=== PATIENT | female | born 1975 | race Caucasian/White ===

== ENCOUNTER 2020-02-02 14:15 | Outpatient (CLI) | payer MEDICARE, MEDICAID, SELFPAY ==
--- NOTE | 2020-02-02 14:27 | CT_ITS ---
WS: [id number] CT NECK WITH CONTRAST HISTORY: CHRONIC SIALOADENITIS TECHNIQUE: Contiguous 5 mm axial images are performed through the neck with intravenous contrast. Sag ittal and coronal reformats are also submitted. All CT scans at [facility] use at least o ne of these dose optimization techniques: automated exposure control; mA and/or kV adjustment per pat ient size (includes targeted exams where dose is matched to clinical indication); or iterative recons truction. CONTRAST: CONTRAST: Omnipaque 300; 95 mL IV. DLP: 2420.65 mGycm COMPARISON: None available. Nasopharynx, oropharynx, hypopharynx and larynx are unremarkable. No soft tissue masses or abnormal e nhancement. Torus tubarius and fossa of Rosenmuller and parapharyngeal fat are normal. No significant lymphadenopathy is identified. Very small thyroid gland. Parotid glands are slightly enlarged. There are multiple small hypodense nodules throughout both glan ds although no discrete enhancing mass. No adjacent inflammation. This study was performed with contr ast which could obscure small stones. The parotid ducts are normal size with no stones at this time. Normal-sized submandibular glands. No osseous abnormalities. Visualized portions of the skull base demonstrate no abnormalities. Orbits and globes are within norm al limits. No soft tissue masses. Visualized paranasal sinuses and mastoid air cells are normal. Lung apices are clear. CT/CT neck w con* [id number] IMPRESSION: 1. Mild enlargement and heterogeneity throughout the carotid glands. The postc ontrast study may obscure small stones. Correlate for possible Sjogren's syndro me. 2. No parotid duct obstruction. 3. Small thyroid gland. May have been partially removed or atrophied.
[2020-02-02] MEDS: iohexol 300 mg/mL 100 mL Btl IV (14:57)
== END 2020-02-02 14:16 | disposition home or self-care (01) ==
PROVIDERS: PCP Physician Assistant; Visit Provider Otolaryngology
DX: K11.23 Chronic sialoadenitis (principal)
CPT/HCPCS: 70491; Q9967

== ENCOUNTER → 2020-03-03 09:01 | Outpatient (BNVA) | payer MEDICARE, MEDICAID, SELFPAY | PROVIDERS: PCP Physician Assistant; Visit Provider Internal Medicine | DX: M06.9 Rheumatoid arthritis, unspecified (principal); Z11.59 Encounter for screening for other viral diseases; Z11.1 Encounter for screening for respiratory tuberculosis; D86.9 Sarcoidosis, unspecified; M32.9 Systemic lupus erythematosus, unspecified; M54.2 Cervicalgia; B99.9 Unspecified infectious disease; M79.642 Pain in left hand; M79.641 Pain in right hand; Z51.81 Encounter for therapeutic drug level monitoring; Z79.899 Other long term (current) drug therapy | CPT/HCPCS: 36415; 72040; 73120; 80053; 82306; 82784; 82955; 85025; 86140; 86431; 86480; 86704; 86803; 87340; 87806; 99204 ==

== ENCOUNTER 2020-03-03 10:13 | Outpatient (CLI) | payer MEDICARE, MEDICAID, SELFPAY ==
--- NOTE | 2020-03-03 10:18 | XR_ITS ---
WS: [id number] LATERAL CERVICAL SPINE: 3 view. Lateral radiographs are performed in upright neutral, flexion and extension to the patient's toleranc e. HISTORY: neck pain COMPARISON: None available. Mild straightening of the normal cervical lordosis. Disc spaces and vertebral body heights are normal . No prevertebral soft tissue abnormality. With flexion and extension no instability. XR/XR cervical spine fl/ex [id number] IMPRESSION: Normal cervical alignment with no instability.
--- NOTE | 2020-03-03 10:18 | XR_ITS ---
WS: [id number] RIGHT HAND: 2 VIEW(S) TECHNIQUE: PA and lateral. HISTORY: hand pain COMPARISON: None available. No acute fracture or dislocation. No soft tissue or bone abnormality. Very minimal narrowing of the interphalangeal joint spaces. No erosions. XR/XR hand RT 2V [id number] IMPRESSION: Suspect very mild early arthritic changes at the interphalangeal joints.
--- NOTE | 2020-03-03 10:18 | XR_ITS ---
WS: [id number] LEFT HAND: 2 VIEW(S) TECHNIQUE: PA and lateral. HISTORY: hand pain COMPARISON: None available. No acute fracture or dislocation. No soft tissue or bone abnormality. No erosions, osteopenia or periostitis. XR/XR hand LT 2V [id number] IMPRESSION: Normal LEFT hand.
== END 2020-03-03 10:14 | disposition home or self-care (01) ==
LOC: RADWPI 10:18
PROVIDERS: PCP Physician Assistant; Visit Provider Internal Medicine
DX: Z51.81 Encounter for therapeutic drug level monitoring (principal); M54.2 Cervicalgia; M79.642 Pain in left hand; M79.641 Pain in right hand; M06.9 Rheumatoid arthritis, unspecified; M32.9 Systemic lupus erythematosus, unspecified; D86.9 Sarcoidosis, unspecified
CPT/HCPCS: 36415; 72040; 73120; 80053; 82306; 82784; 82955; 85025; 86140; 86431; 86480; 86704; 86803; 87340; 87806

== ENCOUNTER → 2020-03-17 08:41 | Outpatient (BNVA) | payer MEDICARE, MEDICAID, SELFPAY | PROVIDERS: PCP Physician Assistant; Visit Provider Internal Medicine | DX: M06.9 Rheumatoid arthritis, unspecified (principal); Z79.899 Other long term (current) drug therapy; M25.551 Pain in right hip; M25.552 Pain in left hip | CPT/HCPCS: 36415; 73522; 82550; 86812; 99214 ==

== ENCOUNTER 2020-03-17 10:15 | Outpatient (CLI) | payer MEDICARE, MEDICAID, SELFPAY ==
--- NOTE | 2020-03-17 10:22 | XR_ITS ---
NOTE: Report was unsigned for reason: Order was edited. Original Signature date and time was: 03/17/20 @5316 WS: [id number] Bilateral hips. HISTORY: SI joint pain. Arthritis. RIGHT hip: 2 view. Normal appearance of the hip joint. No joint space narrowing or osteophytosis. No soft tissue abnormality. LEFT hip: 2 view. Normal appearance of the hip joint. No joint space narrowing or osteophytosis. No soft tissue abnormality. [facility] hip BI 2V wo/w pel [id number] IMPRESSION: Negative bilateral hip radiographs.
== END 2020-03-17 10:16 | disposition home or self-care (01) ==
LOC: RAD 10:19
PROVIDERS: PCP Physician Assistant; Visit Provider Internal Medicine
DX: M06.9 Rheumatoid arthritis, unspecified (principal); M25.551 Pain in right hip; M25.552 Pain in left hip
CPT/HCPCS: 73521; 73522; 82550; 86812

== ENCOUNTER → 2020-03-23 10:56 | Outpatient (BNVA) | payer MEDICARE, MEDICAID, SELFPAY | PROVIDERS: PCP Physician Assistant; Visit Provider Internal Medicine | DX: M06.9 Rheumatoid arthritis, unspecified (principal) | CPT/HCPCS: 20600; 99213; J3301 ==

== ENCOUNTER → 2020-05-19 09:52 | Outpatient (BNVA) | payer MEDICARE, MEDICAID, SELFPAY | PROVIDERS: PCP Physician Assistant; Visit Provider Internal Medicine | DX: M06.00 Rheumatoid arthritis without rheumatoid factor, unspecified site (principal); Z79.899 Other long term (current) drug therapy; M54.2 Cervicalgia; L30.9 Dermatitis, unspecified; K21.9 Gastro-esophageal reflux disease without esophagitis; Z87.891 Personal history of nicotine dependence | CPT/HCPCS: 36415; 80053; 85025; 85651; 86140; 99213 ==

== ENCOUNTER → 2020-08-11 09:49 | Outpatient (BNVA) | payer MEDICARE, MEDICAID, SELFPAY | PROVIDERS: PCP Physician Assistant; Visit Provider Internal Medicine | DX: M06.9 Rheumatoid arthritis, unspecified (principal); Z79.899 Other long term (current) drug therapy; Z87.891 Personal history of nicotine dependence; M25.50 Pain in unspecified joint | CPT/HCPCS: 73120; 73620; 99214 ==

== ENCOUNTER 2020-08-11 11:18 | Outpatient (CLI) | payer MEDICARE, MEDICAID, SELFPAY ==
--- NOTE | 2020-08-11 11:30 | XR_ITS ---
WS: [id number] TECHNIQUE: 2 views of the left hand CLINICAL INFORMATION: M06.9 - Rheumatoid arthritis, unspecified COMPARISON: March 03, 2020 FINDINGS: Normal metacarpals. Normal MCP joint. Metacarpal heads are normal in appearance. Normal PIP and DIP j oints. No evidence of acute fracture or dislocation. Radiocarpal joint: Normal. Carpal bones: Normal. XR/XR hand LT 2V [id number] IMPRESSION: Normal left hand.
--- NOTE | 2020-08-11 11:30 | XR_ITS ---
WS: [id number] TECHNIQUE: 2 views of the right hand CLINICAL INFORMATION: M06.9 - Rheumatoid arthritis, unspecified COMPARISON: March 03, 2020 FINDINGS: Normal metacarpals. Normal MCP joint. Metacarpal heads are normal in appearance. Normal PIP and DIP j oints. No evidence of acute fracture or dislocation. Radiocarpal joint: Normal. Carpal bones: Normal. XR/XR hand RT 2V [id number] IMPRESSION: Normal right hand.
--- NOTE | 2020-08-11 11:30 | XR_ITS ---
WS: [id number] FOOT RIGHT TECHNIQUE: 2 views of the right foot CLINICAL INFORMATION: M25.50 - Pain in unspecified joint COMPARISON: None. FINDINGS: No evidence of acute fracture or dislocation. Normal tarsal metatarsal alignment. Normal calcaneus. N ormal visualized talar dome. No acute findings. XR/XR foot RT 2V [id number] IMPRESSION: Normal right foot.
--- NOTE | 2020-08-11 11:30 | XR_ITS ---
WS: [id number] FOOT LEFT TECHNIQUE: 2 views of the left foot CLINICAL INFORMATION: M25.50 - Pain in unspecified joint COMPARISON: None. FINDINGS: No evidence of acute fracture or dislocation. Normal tarsal metatarsal alignment. Normal calcaneus. N ormal visualized talar dome. No acute findings. XR/XR foot LT 2V [id number] IMPRESSION: Normal left foot.
== END 2020-08-11 11:19 | disposition home or self-care (01) ==
PROVIDERS: PCP Physician Assistant; Visit Provider Internal Medicine
DX: M06.9 Rheumatoid arthritis, unspecified (principal); M25.50 Pain in unspecified joint
CPT/HCPCS: 73120; 73620

== ENCOUNTER → 2020-11-14 14:14 | Outpatient (BNVA) | payer MEDICARE, MEDICAID, SELFPAY | PROVIDERS: PCP Physician Assistant; Visit Provider Internal Medicine | DX: M06.9 Rheumatoid arthritis, unspecified (principal); R74.01 Elevation of levels of liver transaminase levels; Z79.899 Other long term (current) drug therapy; Z87.891 Personal history of nicotine dependence | CPT/HCPCS: 99214 ==

== ENCOUNTER 2020-12-21 07:40 | Outpatient (CLI) | payer MEDICARE, MEDICAID, SELFPAY ==
--- NOTE | 2020-12-21 08:00 | US_ITS ---
WS: [id number] ULTRASOUND ABDOMEN LIMITED CLINICAL INFORMATION: R74.01 - Elevation of levels of liver transaminase levels COMPARISON: None. FINDINGS: Liver Size: Mild hepatomegaly Craniocaudal length: 16.7 cm. Echogenicity: Coarse with diffuse fatty infiltration Surface nodularity: None. Mass (size and location): None. Bile ducts Intrahepatic ducts: Normal. Common bile duct diameter: 0.7 cm. Gallbladder Removed Pancreas Normal as visualized. Right kidney: Normal. Hydronephrosis: None. Size: 10.7 cm x 4.9 cm x 4.5 cm. Abdominal aorta and IVC Visualized portions are normal. Ascites: None. US/US abdomen limited [id number] IMPRESSION: 1. Mild hepatomegaly with diffuse fatty infiltration. 2. No hydronephrosis in right kidney. 3. Prior cholecystectomy.
== END 2020-12-21 07:41 | disposition home or self-care (01) ==
LOC: US 07:42
PROVIDERS: PCP Physician Assistant; Visit Provider Internal Medicine
DX: R74.01 Elevation of levels of liver transaminase levels (principal)
CPT/HCPCS: 76705

== ENCOUNTER → 2021-01-09 14:58 | Outpatient (BNVA) | payer MEDICARE, MEDICAID, SELFPAY | PROVIDERS: PCP Physician Assistant; Visit Provider Internal Medicine | DX: M06.9 Rheumatoid arthritis, unspecified (principal); Z79.899 Other long term (current) drug therapy; Z11.59 Encounter for screening for other viral diseases; R74.01 Elevation of levels of liver transaminase levels; Z87.891 Personal history of nicotine dependence | CPT/HCPCS: 99213; 99214 ==

== ENCOUNTER → 2021-04-17 09:56 | Outpatient (BNVA) | payer MEDICARE, MEDICAID, SELFPAY | PROVIDERS: PCP Physician Assistant; Visit Provider Internal Medicine | DX: M25.50 Pain in unspecified joint (principal); M54.50 Low back pain, unspecified; M79.7 Fibromyalgia; Z79.899 Other long term (current) drug therapy; R74.01 Elevation of levels of liver transaminase levels; K75.81 Nonalcoholic steatohepatitis (NASH); K27.9 Peptic ulcer, site unspecified, unspecified as acute or chronic, without hemorrhage or perforation; Z87.891 Personal history of nicotine dependence; Z59.89 Other problems related to housing and economic circumstances | CPT/HCPCS: 99213; 99214 ==

== ENCOUNTER 2021-04-17 11:25 | Outpatient (CLI) | payer MEDICARE, MEDICAID, SELFPAY ==
--- NOTE | 2021-04-17 11:31 | XR_ITS ---
WS: [id number] LUMBAR SPINE TECHNIQUE: 3 views of the lumbar spine CLINICAL INFORMATION: M54.50 - Low back pain, unspecified COMPARISON: None. FINDINGS: Five lau-kun-qqnhaef lumbar vertebral bodies. Minimal lumbar curve convex right. Disc space heights a re well preserved. No compression fractures. No visualized pars defects. No spondylolisthesis. Visual ized sacroiliac joints are normal. Normal visualized soft tissues. Partially visualized bowel gas pat tern is normal. Cholecystectomy clips. XR/XR lumbar spine 2-3V* [id number] IMPRESSION: No acute lumbar spine findings.
== END 2021-04-17 11:26 | disposition home or self-care (01) ==
PROVIDERS: PCP Physician Assistant; Visit Provider Internal Medicine
DX: M54.50 Low back pain, unspecified (principal); M25.50 Pain in unspecified joint; M79.7 Fibromyalgia; Z79.899 Other long term (current) drug therapy; R74.01 Elevation of levels of liver transaminase levels; K75.81 Nonalcoholic steatohepatitis (NASH); K27.9 Peptic ulcer, site unspecified, unspecified as acute or chronic, without hemorrhage or perforation; Z87.891 Personal history of nicotine dependence; Z59.89 Other problems related to housing and economic circumstances
CPT/HCPCS: 72100; 99213; 99214

== ENCOUNTER 2023-11-14 03:29 | Emergency (ER) | payer MEDICARE, MEDICAID, SELFPAY ==
[2023-11-14 03:39] VITALS: BP 127/80; PULSE 91; RESP 18; TEMP 36.7; O2SAT 99; BMI 28.3
--- NOTE | 2023-11-14 03:46 | ED_ITS ---
HPI - Headache 2 General: Chief Complaint: Headache Stated Complaint: Feels Overheated Time Seen by Provider: 11/14/23 03:40 History of Present Illness: 48-year-old female who presents the [facility] room with a headache and muscle cramps. She says she had a syncopal episode yesterday. Says she got very hot. She says she read some illness that if her symptoms persisted she should go to the emergency room. No altered mental status. No focal motor deficits. No fevers. No nausea or vomiting. Review of Systems 2 Narrative: Constitutional symptoms: Negative except as documented in HPI. Skin symptoms: Negative except as documented in HPI. Eye symptoms: Negative except as documented in HPI. ENMT symptoms: Negative except as documented in HPI. Respiratory symptoms: Negative except as documented in HPI. Cardiovascular symptoms: Negative except as documented in HPI. Gastrointestinal symptoms: Negative except as documented in HPI. Genitourinary symptoms: Negative except as documented in HPI. Musculoskeletal symptoms: Negative except as documented in HPI. Neurologic symptoms: Negative except as documented in HPI. Psychiatric symptoms: Negative except as documented in HPI. Endocrine symptoms: Negative except as documented in HPI. PFSH ED 2 PFSH: Medical History (Updated 11/14/23 @ 04:35 by Maria L Rausch MD) Fibromyalgia Rheumatoid arthritis Family History Mother Rheumatoid arthritis Social History (Updated 04/17/21 @ 10:43 by Nancy Magallon LPN) Smoking and tobacco/nicotine status: former use of tobacco/nicotine Second hand smoke exposure: No Alcohol intake: never Substance/Drug Use: current Substance/Drug use frequency: daily Other substance/drug use details: states is helpful for her pain Physical Exam 2 Narrative: EXAM NARRATIVE: General: Alert, no acute distress. Skin: Warm, dry. Head: Normocephalic, atraumatic. Neck: Supple, trachea midline. Eye: Extraocular movements are intact. Ears, nose, mouth and throat: mucosa moist. Cardiovascular: Regular, Normal peripheral perfusion. Respiratory: Lungs are clear to auscultation, respirations are non-labored, breath sounds are equal, Symmetrical chest wall expansion. Gastrointestinal: Soft, Nontender, Non distended, Normal bowel sounds. Musculoskeletal: Normal ROM, no deformity. Neurological: Alert and oriented, No focal neurological deficit observed. Psychiatric: Cooperative, appropriate mood & affect. Course 2 Vital Signs: Vital signs: Vital Signs Temperature 98.1 F 11/14/23 03:39 Pulse Rate 91 11/14/23 03:39 Respiratory Rate 18 11/14/23 03:39 Blood Pressure 127/80 11/14/23 03:39 Pulse Oximetry 99 11/14/23 03:39 Oxygen Delivery Me thod Room Air 11/14/23 03:39 MDM - Headache Medical Decision Making Lab work is unremarkable. No renal failure. No hypokalemia. Assessment and plan: Dehydration Heat exposure - Discharged home - Discussed plan with patient. Answered any questions. - Evaluation and treatment of this problem were appropriate in the emergency setting. Lab Data 11/14/23 03:56 11/14/23 03:56 Laboratory Results WBC 4.65 10^3/uL (3.29-11.43) 11/14/23 03:56 RBC 4.63 10^6/uL (3.85-5.65) 11/14/23 03:56 Hgb 14.10 g/dL (11.27-16.99) 11/14/23 03:56 Hct 41.9 % (36-47) 11/14/23 03:56 MCV 90.5 fl (85-98) 11/14/23 03:56 MCH 30.5 pg (27-33) 11/14/23 03:56 MCHC 33.7 g/dL (30-55) 11/14/23 03:56 RDW 13.3 % (12.1-15.1) 11/14/23 03:56 Plt Count 182 10^3/cmm (157-399) 11/14/23 03:56 MPV 9.5 fL (7.4-10.4) 11/14/23 03:56 Neut % (Auto) 50.8 % 11/14/23 03:56 Lymph % (Auto) 36.3 % 11/14/23 03:56 Vance % (Auto) 10.5 % 11/14/23 03:56 Eos % (Auto) 1.1 % 11/14/23 03:56 Baso % (Auto) 1.1 % 11/14/23 03:56 Neut # (Auto) 2.36 10^3/uL (1.8-7.7) 11/14/23 03:56 Lymph # (Auto) 1.7 10^3/uL (0.8-4.8) 11/14/23 03:56 Vance # (Auto) 0.5 10^3/uL (0.2-0.9) 11/14/23 03:56 Eos # (Auto) 0.1 10^3/uL (0.0-0.8) 11/14/23 03:56 Baso # (Auto) 0.1 10^3/uL (0.0-0.1) 11/14/23 03:56 Nucleated RBC % (auto) 0 % 11/14/23 03:56 Nucleated RBCs # 0.0 /100WBC 11/14/23 03:56 Sodium 140 mmol/L (136-145) 11/14/23 03:56 Potassium 3.9 mmol/L (3.5-5.1) 11/14/23 03:56 Chloride 101 mmol/L (98-107) 11/14/23 03:56 Carbon Dioxide 26 mmol/L (22-29) 11/14/23 03:56 Anion Gap 16.9 (5-19) 11/14/23 03:56 BUN 8 mg/dL (6-20) 11/14/23 03:56 Creatinine 0.6 mg/dL (0.5-0.9) 11/14/23 03:56 GFR Calculation 105.8 mL/min (90-130) 11/14/23 03:56 Glucose 101 mg/dL (65-115) 11/14/23 03:56 Calculated Osmolality 288 mOsm/kg (285-295) 11/14/23 03:56 Calcium 9.7 mg/dL (8.5-10.5) 11/14/23 03:56 Total Bilirubin 0.2 mg/dL (0.15-1.2) 11/14/23 03:56 AST 21 U/L (0-32) 11/14/23 03:56 ALT 21 U/L (0-33) 11/14/23 03:56 Alkaline Phosphatase 88 U/L (35-105) 11/14/23 03:56 Troponin T Baseline < 6 ng/L (0-10) 11/14/23 03:56 Total Protein 7.3 g/dL (6.6-8.7) 11/14/23 03:56 Albumin 4.7 g/dL (3.5-5.2) 11/14/23 03:56 Globulin 2.6 g/dL (1.3-4.6) 11/14/23 03:56 No radiology studies performed this visit Discharge Plan Discharge Patient Disposition: Home Clinical Impression: Dehydration, Heat exposure Condition: Stable Prescriptions: No Action Incruse Ellipta 62.5 mcg/actuation blister with device 1 inh INHALATION DAILY levothyroxine 100 mcg capsule 100 mcg PO DAILY cholecalciferol (vitamin D3) 1,250 mcg (50,000 unit) capsule 50,000 unit PO .qweek Qty: 14 0RF diclofenac sodium [Voltaren] 1 % gel 2 g topical QID Qty: 100 2RF Rx Instructions: apply to single elbow, wrist or hand; for hand includes palm/fingers/back of hand prednisone 5 mg tablet See Rx Instructions PO DAILY Qty: 60 0RF Rx Instructions: take 1-3 tablets daily as needed x 10 days for flare PO daily; PRN Probiotic Pearls Complete 1 billion cell capsule,delayed release(DR/EC) 1 cap PO DAILY Qty: 90 1RF Rx Instructions: ok to send formulary Discharge Orders: Discharge ED (Routine); Ordered 11/14/23 Ordered By: Maria L Rausch Referrals: Kaylie Willoughby PA [Primary Care Provider] - 4-7 days Discharge Diet: Usual diet Discharge Activity: Increase activity as tolerated Patient Instructions: Heat Cramps - Adult, Heat Exhaustion (ED) Activity Restrictions/Additional Instructions: Thank you for choosing [facility] for your healthcare needs today. Please realize this is an emergency room and that we are providing you with a medical screening exam and this may not be complete and all inclusive of all the testing and or work up that you may need to determine your ailment or severity of your illness. You have been screened and evaluated and felt safe for discharge. Health conditions do change or evolve sometimes and as such it is important that you follow up with your Primary Doctor to be re checked, 3-5 days is a general good time frame for follow up. You are always welcome to return to the ED for re assessment if your symptoms are worsening or you have new concerns Coding Level of Care Code ED Director Of Security for Gaby Rodriguez
[2023-11-14 04:03] LABS: Basophils # 0.1 10^3/uL (0.0-0.1); Basophils % 1.1 %; Eosinophils # 0.1 10^3/uL (0.0-0.8); Eosinophils % 1.1 %; Hematocrit 41.9 % (36-47); Lymphocytes # 1.7 10^3/uL (0.8-4.8); Lymphocytes % 36.3 %; Mean Corpuscular HGB Conc 33.7 g/dL (30-55); Mean Corpuscular Hemoglobin 30.5 pg (27-33); Mean Corpuscular Volume 90.5 fl (85-98); Mean Platelet Volume 9.5 fL (7.4-10.4); Monocytes # 0.5 10^3/uL (0.2-0.9); Monocytes % 10.5 %; Neutrophils # 2.36 10^3/uL (1.8-7.7); Neutrophils % 50.8 %; Nucleated Red Blood Cells % 0 %; Platelet Count 182 10^3/cmm (157-399); Red Blood Count 4.63 10^6/uL (3.85-5.65); Red Cell Distribution Width 13.3 % (12.1-15.1); White Blood Count 4.65 10^3/uL (3.29-11.43)
[2023-11-14] MEDS: sodium chloride 0.9% 1,000 ML 999 ML IV (04:04)
--- NOTE | 2023-11-14 04:14 | ECG_ITS ---
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 Measurements Intervals Spivey Rate: 68 P: 14 ME: 134 QRS: 48 QRSD: 96 T: 51 QT: 343 QTc: 365 Interpretive Statements SINUS RHYTHM No previous ECG available for comparison Electronically Signed On 11-14-2023 12:21:23 CDT by Michelet Burdick M.D. [email or web address]
[2023-11-14 04:25] LABS: Troponin(5th) Baseline < 6 ng/L (0-10)
[2023-11-14 04:28] LABS: Alanine Aminotransferase 21 U/L (0-33); Albumin Level 4.7 g/dL (3.5-5.2); Alkaline Phosphatase 88 U/L (35-105); Anion Gap 16.9 (5-19); Aspartate Amino Transferase 21 U/L (0-32); Blood Urea Nitrogen 8 mg/dL (6-20); Calcium 9.7 mg/dL (8.5-10.5); Carbon Dioxide 26 mmol/L (22-29); Chloride 101 mmol/L (98-107); Creatinine Clr Calc Pharmacy 98.9818; Globulin 2.6 g/dL (1.3-4.6); Glomerular Filtration Rate 105.8 mL/min (90-130); Glucose 101 mg/dL (65-115); Osmolality Calculated 288 mOsm/kg (285-295); Potassium 3.9 mmol/L (3.5-5.1); Sodium 140 mmol/L (136-145); Total Bilirubin 0.2 mg/dL (0.15-1.2); Total Protein 7.3 g/dL (6.6-8.7)
[2023-11-14 04:45] VITALS: PULSE 87; RESP 16; O2SAT 96
[2023-11-14 04:48] VITALS: PULSE 86; O2SAT 100
== END 2023-11-14 05:43 | disposition home or self-care (01) ==
PROVIDERS: Emergency Provider Emergency Medicine; PCP Physician Assistant
DX: T67.9XXA Effect of heat and light, unspecified, initial encounter (principal); X30.XXXA Exposure to excessive natural heat, initial encounter; E86.0 Dehydration; Z87.891 Personal history of nicotine dependence
CPT/HCPCS: 36415; 80053; 84484; 85025; 93005; 99284; J7030

== ENCOUNTER 2023-12-15 07:46 | Emergency (ER) | payer MEDICARE, MEDICAID, SELFPAY ==
[2023-12-15 07:51] VITALS: BP 145/77; PULSE 78; RESP 18; TEMP 36.9; O2SAT 98; BMI 28.5
[2023-12-15 07:57] VITALS: BP 145/77; PULSE 78; RESP 18; TEMP 36.9; O2SAT 98
--- NOTE | 2023-12-15 07:59 | W.ED.SKABFB ---
HPI - Skin/Abscess/Foreign Bdy General: Chief complaint: Skin/Abscess/Foreign Body Stated complaint: Tick bite Time Seen by Provider: 12/15/23 07:50 Source: patient Mode of arrival: ambulatory Limitations: no limitations History of Present Illness: 48-year-old female states she had a tick bite to her right inner thigh last night she had pulled the tick off states she has had increased redness around the site. She has had a history of tickborne illnesses in the past. Patient denies any fever any joint pain she denies any vomiting or diarrhea. Associated symptoms: Deny chills, fever(s), nausea or vomiting Review of Systems Const: Denies: fever(s), chills, body aches or change in appetite ENMT: Denies: throat pain or dental pain Card: Denies: chest pain Resp: Denies: dyspnea GI: Denies: abdominal pain, nausea, vomiting or diarrhea Musc: Denies: neck pain or back pain Skin/Breast: Reports: erythema; Denies: rash Neuro: Denies: headache(s) PFSH ED PFSH: Medical History Fibromyalgia Rheumatoid arthritis Family History Mother Rheumatoid arthritis Social History Smoking and tobacco/nicotine status: former use of tobacco/nicotine Second hand smoke exposure: No Alcohol intake: never Substance/Drug Use: current Substance/Drug use frequency: daily Other substance/drug use details: states is helpful for her pain Physical Exam Const: COMMON NORMALS: no acute distress, patient oriented x3 and healthy appearing Eye: COMMON NORMALS: Equal, round and reactive pupils present and EOMs intact bilaterally PUPIL: Yes Equal, round and reactive pupils present Chest: COMMONS NORMALS: normal inspection of the chest Resp: COMMON NORMALS: normal respiratory effort Cardio: COMMON NORMALS: regular rate, regular rhythm and No murmurs present (Cardio) RATE: regular rate RHYTHM: regular rhythm Extremity: COMMON NORMALS: full ROM Neuro: COMMON NORMALS: patient oriented x3, moves all extremities and no focal motor deficits Psych: COMMON NORMALS: mental status grossly normal, Normal thought process present and cooperative THOUGHT PROCESS: Normal thought process present Skin: COMMON NORMALS: no wounds NARRATIVE SKIN EXAM: Tick bite noted to right inner thigh with erythema roughly 5 cm in area Course Vital Signs: Vital signs: Vital Signs Temperature 98.5 F 12/15/23 07:57 Pulse Rate 78 12/15/23 07:57 Respiratory Rate 18 12/15/23 07:57 Blood Pressure 145/77 12/15/23 07:57 Pulse Oximetry 98 12/15/23 07:57 Oxygen Delivery Me thod Room Air 12/15/23 07:57 MDM - Skin/Abscess/Foreign Bdy Medicial Decision Making Patient presents with a tick bite we will start her on doxycycline she is to follow-up with PCP return if worsening she understands agrees to plan Medical Records I reviewed the patient's medical records. No radiology studies performed this visit Discharge Plan Discharge Patient Disposition: Home Clinical Impression: Tick bite Qualifiers: Encounter type: initial encounter Site of tick bite: thigh Laterality: right Qualified Code(s): S70.361A - Insect bite (nonvenomous), right thigh, initial encounter Condition: Stable Prescriptions: New doxycycline hyclate 100 mg tablet 100 mg PO BID 7 Days Qty: 14 0RF No Action Incruse Ellipta 62.5 mcg/actuation blister with device 1 inh INHALATION DAILY levothyroxine 100 mcg capsule 100 mcg PO DAILY cholecalciferol (vitamin D3) 1,250 mcg (50,000 unit) capsule 50,000 unit PO .qweek Qty: 14 0RF diclofenac sodium [Voltaren] 1 % gel 2 g topical QID Qty: 100 2RF Rx Instructions: apply to single elbow, wrist or hand; for hand includes palm/fingers/back of hand prednisone 5 mg tablet See Rx Instructions PO DAILY Qty: 60 0RF Rx Instructions: take 1-3 tablets daily as needed x 10 days for flare PO daily; PRN Probiotic Pearls Complete 1 billion cell capsule,delayed release(DR/EC) 1 cap PO DAILY Qty: 90 1RF Rx Instructions: ok to send formulary Discharge Orders: Discharge ED (Routine); Ordered 12/15/23 Ordered By: Billy Garcia Referrals: Kaylie Willoughby PA [Primary Care Provider] - 4-7 days Discharge Diet: Advance as tolerated Discharge Activity: Resume usual activity Patient Instructions: Tick Bite (ED) Coding Level of Care Code ED Utility Service Worker for Carolg Jennifer
[2023-12-15] MEDS: doxycycline 100 mg Tablet PO (08:05)
[2023-12-15 08:08] VITALS: BP 113/85; PULSE 78; O2SAT 99
== END 2023-12-15 08:08 | disposition home or self-care (01) ==
PROVIDERS: Emergency Provider Emergency Medicine; PCP Physician Assistant
DX: S70.361A Insect bite (nonvenomous), right thigh, initial encounter (principal); Z87.891 Personal history of nicotine dependence; Z79.899 Other long term (current) drug therapy
CPT/HCPCS: 99283

== ENCOUNTER → 2024-05-19 10:23 | Outpatient (BNVA) | payer OTHER, SELFPAY | PROVIDERS: PCP Physician Assistant; Visit Provider Psychiatry & Neurology Psychiatry | DX: F43.12 Post-traumatic stress disorder, chronic (principal) | CPT/HCPCS: 80061; 83036 ==

== ENCOUNTER → 2024-07-03 11:13 | Outpatient (BNVA) | payer MEDICARE, MEDICAID, SELFPAY ==
[2024-05-21 10:54] VITALS: BP 148/98; BMI 36.2
== END ==
PROVIDERS: PCP Physician Assistant; Visit Provider Psychiatry & Neurology Psychiatry
DX: F33.2 Major depressive disorder, recurrent severe without psychotic features (principal); F41.1 Generalized anxiety disorder; F43.12 Post-traumatic stress disorder, chronic
CPT/HCPCS: 80053; 84443; 85025

== ENCOUNTER 2024-09-07 09:50 | Outpatient (CLI) | payer MEDICARE, MEDICAID, SELFPAY ==
[2024-05-21 10:54] VITALS: BP 148/98; BMI 36.2
== END 2024-09-07 09:51 | disposition home or self-care (01) ==
LOC: SLEEP 09:51
PROVIDERS: PCP Physician Assistant; Visit Provider Psychiatry & Neurology Psychiatry
DX: G47.33 Obstructive sleep apnea (adult) (pediatric) (principal)
CPT/HCPCS: G0399

== ENCOUNTER 2024-10-20 20:00 | Outpatient (CLI) | payer MEDICARE, MEDICAID, SELFPAY ==
[2024-05-21 10:54] VITALS: BP 148/98; BMI 36.2
== END 2024-10-20 20:01 | disposition home or self-care (01) ==
PROVIDERS: PCP Physician Assistant; Visit Provider Psychiatry & Neurology Psychiatry
DX: G47.33 Obstructive sleep apnea (adult) (pediatric) (principal)
CPT/HCPCS: 95811